=== PATIENT | male | born 1980 | race Caucasian/White ===

== ENCOUNTER 2020-12-21 03:10 | Emergency (ER) | payer SELFPAY ==
[2020-12-21] MEDS ORDERED: Ondansetron PF 4 MG/2 ML Vial ONE (03:54)
[2020-12-21 03:59] LABS: #Lymphocytes 1.4 thou/uL (1.20-3.40); #Monocytes 0.8 thou/uL (0.11-0.59); #Neutrophils 13.3 thou/uL (1.40-6.50); %Basophils 0.1 % (0.0-1.0); %Eosinophils 0.2 % (0.0-10.0); %Lymphocytes 8.9 % (21.0-51.0); %Monocytes 4.9 % (0.0-10.0); %Neutrophils 85.9 % (42.0-75.0); Hemoglobin 15.1 g/dL (14.0-18.0); Mean Corpuscular HGB CONC 34.7 g/dL (32.0-36.0); Mean Corpuscular Hemoglobin 31.8 pg (27.0-31.0); Mean Corpuscular Volume 91.6 fL (78.0-98.0); Mean Platelet Volume 9.2 fL (7.4-10.4); Platelet Count 318 thou/uL (130-400); Red Blood Cell (RBC) Count 4.74 mill/uL (4.70-6.10); White Blood Cell (WBC) Count 15.5 thou/uL (4.8-10.8)
[2020-12-21 04:21] LABS: ALT (SGPT) 44 U/L (8-55); AST (SGOT) 23 U/L (5-34); Albumin 4.2 g/dL (3.5-5.0); Alkaline Phosphatase 140 U/L (40-110); Anion Gap 15 mmol/L (10-20); BUN (Urea Nitrogen) 13 mg/dL (8.9-20.6); Bilirubin, Total 0.8 mg/dL (0.2-1.2); Calc. Creatinine Clearance 0 mL/min (70-130); Calcium 9.4 mg/dL (7.8-10.44); Carbon Dioxide 23 mmol/L (22-29); Chloride 102 mmol/L (98-107); Globulin 3.6 g/dL (2.4-3.5); Glucose 122 mg/dL (70-105); Lipase 26 U/L (8-78); Potassium 3.4 mmol/L (3.5-5.1); Protein, Total 7.8 g/dL (6.0-8.3); Sodium 137 mmol/L (136-145)
[2020-12-21 04:52] LABS: Bacteria/HPF None Seen HPF (None Seen); Bilirubin Negative (Negative); Blood, Urine Negative (Negative); Clarity Clear (Clear); Glucose, Urine (Dipstick) Normal (Negative); Ketone, Urine 80 mg/dL (Negative); Leukocyte Negative Leu/uL (Negative); Nitrite Negative (Negative); Protein, Urine (Dipstick) 30 mg/dL (Neg-Trace); RBC/HPF 0-3 HPF (0-3); Specific Gravity, Urine 1.042 (1.002-1.036); Squamous Epithelial 0-3 HPF (0-3); Urobilinogen 6 mg/dL (Less than 2); WBC/HPF 0-3 HPF (0-3)
== END 2020-12-21 05:08 | disposition home or self-care (01) ==
LOC: ERS 03:10
DX: R11.2 Nausea with vomiting, unspecified (principal); R10.9 Unspecified abdominal pain; R21 Rash and other nonspecific skin eruption
CPT/HCPCS: 80053; 81003; 81015; 83690; 85025; 96374; J2405

== ENCOUNTER 2022-05-08 15:00 | Emergency (ER) | payer SELFPAY ==
[2022-05-08] MEDS ORDERED: Ondansetron ODT 4 MG TAB ONE (15:27)
== END 2022-05-08 16:30 | disposition home or self-care (01) ==
LOC: ERS 15:00
DX: B34.9 Viral infection, unspecified (principal); L03.011 Cellulitis of right finger; T23.111A Burn of first degree of right thumb (nail), initial encounter; Z20.822 Contact with and (suspected) exposure to COVID-19
CPT/HCPCS: 87804; 99284; Q0162; U0003; U0005

== ENCOUNTER 2023-04-12 07:42 | Emergency (ER) | payer BC, SELFPAY | END 2023-04-12 08:45 | disposition home or self-care (01) | LOC: ERS 07:42 | DX: J06.9 Acute upper respiratory infection, unspecified (principal) | CPT/HCPCS: 99283 ==

== ENCOUNTER 2025-07-29 13:15 | Emergency (ER) | payer SELFPAY | END 2025-07-29 13:43 | disposition home or self-care (01) | LOC: ERS 13:15 | DX: J06.9 Acute upper respiratory infection, unspecified (principal); B97.89 Other viral agents as the cause of diseases classified elsewhere | CPT/HCPCS: 87081; 87430; 99283 ==